=== PATIENT | male | born 1990 | race Caucasian/White ===

== ENCOUNTER 2019-05-21 21:20 | Emergency (ER) | payer OTHER ==
[~2019-05-21] VITALS: Ht 175.3 cm; Wt 97.8 kg
--- NOTE | 2019-05-21 21:43 | NUR ---
THIS IS A 28Y M THAT COMES IN FOR FEELING ANXIOUS AND HIS HEART RACING. PT HAS HX OF ANXIETY AND TRIED HOME MEDS SEROQUEL AND HYDROXYZINE. NO RELIEF FROM HEART RACING FEELING. PT DENIES HX OF HIGH HR. PT CONNECTED TO ALL MONITORING VSS, HR 120, ABLE TO SPEAK IN FULL SENTENCES.
[2019-05-21 21:44] VITALS: BP 147/83
[2019-05-21] MEDS ORDERED: LORazepam 1MG TABLET ONE (21:48)
--- NOTE | 2019-05-21 21:50 | NUR ---
PT MEDICATED PER MAR
[2019-05-21] MEDS ORDERED: LORazepam 1MG TABLET PO ONE (22:00)
== END 2019-05-21 22:36 | disposition home or self-care (01) ==
LOC: ED 22:30
DX: F41.1 Generalized anxiety disorder (principal); R00.2 Palpitations; R00.0 Tachycardia, unspecified
CPT/HCPCS: 93005; 99283

== ENCOUNTER 2019-06-04 15:42 | Emergency (ER) | payer OTHER ==
[~2019-06-04] VITALS: Ht 175.3 cm; Wt 97.1 kg
--- NOTE | 2019-06-04 16:04 | NUR ---
PATIENT BROUGHT BACK FROM TRIAGE WITH CHIEF COMPLAINT OF DIZZY AND LIGHTHEADED X 1 HOUR, HX OF ANXIETY. PT IS A&O X4, DENIES CP, N/V, SOB, RECENT TRAUMA. REPORTS COCAINE USE
[2019-06-04 16:41] LABS: BASOPHILS # (AUTO) 0.03 x10^3/uL (0-0.1); BASOPHILS % (AUTO) 0 % (0-1); EOSINOPHILS # (AUTO) 0.14 x10^3/uL (0-0.4); EOSINOPHILS % (AUTO) 2 % (1-7); LYMPHOCYTES # (AUTO) 2.84 x10^3/uL (1-3.4); LYMPHOCYTES % (AUTO) 30 % (22-44); MD NO; MEAN CORPUSCULAR HEMOGLOBIN 30.1 pg (27.5-34.5); MEAN CORPUSCULAR HGB CONC 34.3 g/dL (33.2-36.2); MEAN CORPUSCULAR VOLUME 87.8 fL (81-97); MEAN PLATELET VOLUME 7.2 fL (7.4-10.4); MONOCYTES # (AUTO) 0.54 x10^3/uL (0.2-0.8); MONOCYTES % (AUTO) 6 % (2-9); NEUTROPHILS # (AUTO) 6.09 x10^3/uL (1.8-6.8); NEUTROPHILS % (AUTO) 63 % (42-75); PLATELET COUNT 238 x10^3/uL (130-400); RED BLOOD COUNT 4.96 x10^6/uL (4.38-5.82); RED CELL DISTRIBUTION WIDTH 14.5 % (9.4-14.8)
[2019-06-04 16:49] LABS: ALBUMIN 4.1 g/dL (3.4-5.0); ANION GAP 8 mmol/L (5-15); CALCIUM 9.3 mg/dL (8.5-10.1); CHLORIDE 111 mmol/L (98-107)
[2019-06-04 17:00] LABS: ALANINE AMINOTRANSFERASE 84 U/L (12-78); ALKALINE PHOSPHATASE 91 U/L (45-117); BILIRUBIN,TOTAL 0.9 mg/dL (0.2-1.0); CREATININE 1.09 mg/dL (0.7-1.3); TOTAL PROTEIN 7.7 g/dL (6.4-8.2)
[2019-06-04 17:11] VITALS: BP 138/76
--- NOTE | 2019-06-04 17:12 | NUR ---
PT RESTING IN BED, "FEEL MUCH BETTER"
--- NOTE | 2019-06-04 17:35 | NUR ---
DISCHARGE INSTRUCTIONS REVIEWED
== END 2019-06-04 17:33 ==
LOC: ED 16:41
DX: F41.1 Generalized anxiety disorder (principal); R42 Dizziness and giddiness; R20.0 Anesthesia of skin
CPT/HCPCS: 36415; 80053; 83735; 84443; 85025; 93005; 99284